=== PATIENT | female | born 1960 | race Caucasian/White ===

== ENCOUNTER 2022-03-26 16:34 | Emergency (ER) | payer BC, OTHER ==
[2022-03-26] MEDS ORDERED: IBUPROFEN600 MG PO (17:15)
== END 2022-03-26 17:30 | disposition home or self-care (01) ==
LOC: ER1 16:34
DX: S60.222A Contusion of left hand, initial encounter (principal); W19.XXXA Unspecified fall, initial encounter
CPT/HCPCS: 73090; 73130; 99283